=== PATIENT | male | born 1965 | race African-American/Black ===

== ENCOUNTER 2016-12-28 17:37 | Emergency (ER) | payer MEDICAID | END 2016-12-28 20:25 | disposition home or self-care (01) | LOC: CFTX 17:37 → CED 17:37 → CFTX 20:23 | DX: S01.312A Laceration without foreign body of left ear, initial encounter (principal); X58.XXXA Exposure to other specified factors, initial encounter; Y92.098 Other place in other non-institutional residence as the place of occurrence of the external cause | CPT/HCPCS: 12013; 99283 ==